=== PATIENT | female | born 1985 | race Hispanic/Latino ===

== ENCOUNTER 2022-07-03 01:59 | Emergency (ER) | payer BC ==
[2022-07-03] MEDS ORDERED: Morphine 4 MG/ML VIAL ONE (02:34)
[2022-07-03] MEDS ORDERED: Ondansetron PF 4 MG/2 ML Vial ONE (02:34)
[2022-07-03] MEDS ORDERED: Lorazepam 2 MG/ML VIAL ONE (02:35)
[2022-07-03 02:50] LABS: Bilirubin Neg (Negative); Blood, Urine 10 (Negative); Clarity Slightly Cloudy (Clear); Glucose, Urine (Dipstick) Normal (Negative); Ketone, Urine Negative (Negative); Leukocyte 25 (Negative); Nitrite Negative (Negative); Protein, Urine (Dipstick) Negative (Neg-Trace); Urobilinogen Normal mg/dL (Less than 2); pH, Urine 6.5 (5.0-9.0)
[2022-07-03 02:59] LABS: Bacteria/HPF 1+ HPF (None Seen); RBC/HPF 0-3 HPF (0-3); WBC/HPF 0-3 HPF (0-3)
[2022-07-03 03:00] LABS: Amphetamine Not Detected (NotDetected); Barbiturates Screen Not Detected (NotDetected); Benzodiazepine Screen Not Detected (NotDetected); Cocaine Metabolite Screen Not Detected (NotDetected); Methadone Not Detected (NotDetected); Methamphetamine Not Detected (NotDetected); Opiate Screen Not Detected (NotDetected); Oxycodone Screen Not Detected (NotDetected); Phencyclidine (PCP) Not Detected (NotDetected); THC/Cannabinoid Screen Not Detected (NotDetected); Tricyclic Screen Not Detected (NotDetected)
[2022-07-03 03:06] LABS: #Basophils 0.1 10x3/uL (0.0-0.2); #Eosinphils 0.1 10x3/uL (0.0-0.5); #Monocytes 0.6 10x3/uL (0.0-1.1); #Neutrophils 5.9 10x3/uL (1.5-8.4); %Basophils 0.8 % (0.0-2.0); %Eosinophils 1.5 % (0.0-6.0); %Lymphocytes 29.4 % (18.0-47.0); %Monocytes 6.7 % (0.0-10.0); %Neutrophils 61.4 % (40.0-75.0); Hemoglobin 13.5 g/dL (12.0-15.5); Mean Corpuscular HGB CONC 34.4 g/dL (32.0-36.0); Mean Corpuscular Hemoglobin 30.5 pg (27.0-33.0); Mean Corpuscular Volume 88.5 fl (81.6-98.3); Mean Platelet Volume 10.3 fl (7.4-10.4); Platelet Count 284 10x3/uL (150-450); RBC Distribution Width 12.7 % (11.5-14.5); Red Blood Cell (RBC) Count 4.43 10x6/uL (3.90-5.03); White Blood Cell (WBC) Count 9.6 10x3/uL (3.5-10.5)
[2022-07-03 03:09] LABS: BHCG - Serum Negative (NEGATIVE); Pregs Control Background? CLEAR/WHITE (CLR/WHITE); Pregs Control Bar Appear? YES (CONTROL BAR)
[2022-07-03 03:19] LABS: ALT (SGPT) 13 U/L (8-55); AST (SGOT) 11 U/L (5-34); Albumin 4.2 g/dL (3.5-5.0); Alkaline Phosphatase 100 U/L (40-110); Anion Gap 14 mmol/L (10-20); BUN (Urea Nitrogen) 8 mg/dL (7.0-18.7); Bilirubin, Total 0.4 mg/dL (0.2-1.2); Calc. Creatinine Clearance 0 mL/min (70-130); Carbon Dioxide 23 mmol/L (22-29); Chloride 108 mmol/L (98-107); Estimated GFR 105; Globulin 2.5 g/dL (2.4-3.5); Glucose 69 mg/dL (70-105); Potassium 3.7 mmol/L (3.5-5.1); Protein, Total 6.7 g/dL (6.0-8.3); Sodium 141 mmol/L (136-145)
[2022-07-03 03:22] LABS: Acetaminophen Less than 10.0 mcg/mL (10.0-30.0); Alcohol Less than 10 mg/dL (Less than 10); CK (CPK) 38 U/L (29-168); Lipase 73 U/L (8-78); Salicylate Less than 8.0 mg/dL (15.0-30.0)
== END 2022-07-03 05:26 | disposition home or self-care (01) ==
LOC: CSHERS 01:59
DX: R44.3 Hallucinations, unspecified (principal); R53.1 Weakness; E03.9 Hypothyroidism, unspecified
CPT/HCPCS: 80053; 80306; 80307; 81003; 81015; 82550; 83690; 84443; 84703; 85025; 93005; 96374; 96375; J2060; J2270; J2405

== ENCOUNTER 2022-08-07 10:37 | Outpatient (CLI) | payer BC | END 2022-08-07 10:38 | disposition home or self-care (01) | LOC: CSHMAMMO 10:37 | PROVIDERS: ATTEND Physician Assistant | DX: Z13.820 Encounter for screening for osteoporosis (principal); E21.3 Hyperparathyroidism, unspecified; M84.48XA Pathological fracture, other site, initial encounter for fracture; M85.852 Other specified disorders of bone density and structure, left thigh | CPT/HCPCS: 77080 ==

== ENCOUNTER 2023-09-09 08:52 | Outpatient (CLI) | payer BC | END 2023-09-09 08:53 | disposition home or self-care (01) | LOC: CSHMRI 08:52 | PROVIDERS: ATTEND Internal Medicine Gastroenterology | DX: R10.13 Epigastric pain (principal); Z90.49 Acquired absence of other specified parts of digestive tract; K76.9 Liver disease, unspecified; N28.1 Cyst of kidney, acquired | CPT/HCPCS: 74183 ==

== ENCOUNTER 2025-04-10 12:48 | Emergency (ER) | payer BC, OTHER ==
[2025-04-10 13:13] LABS: #Basophils Less than 0.03 10x3/uL (0.0-0.2); #Eosinophils Less than 0.03 10x3/uL (0.0-0.5); #Monocytes 0.08 10x3/uL (0.0-1.1); #Neutrophils 5.88 10x3/uL (1.5-8.4); %Basophils 0.2 % (0.0-2.0); %Eosinophils 0.0 % (0.0-6.0); %Lymphocytes 4.3 % (18.0-47.0); %Monocytes 1.3 % (0.0-10.0); %Neutrophils 93.9 % (40.0-75.0); Hematocrit 34.2 % (34.9-44.5); Hemoglobin 11.8 g/dL (12.0-15.5); Mean Corpuscular Hemoglobin 32.6 pg (27.0-33.0); Mean Corpuscular Volume 94.5 fL (81.6-98.3); Platelet Count 166 10x3/uL (150-450); Red Blood Cell (RBC) Count 3.62 10x6/uL (3.90-5.03); White Blood Cell (WBC) Count 6.26 10x3/uL (3.5-10.5)
[2025-04-10 13:34] LABS: ALT (SGPT) 25 U/L (Less than 34); AST (SGOT) 29 U/L (11-34); Albumin 3.7 g/dL (3.1-4.5); Alkaline Phosphatase 74 U/L (40-110); Anion Gap 11 mmol/L (10-20); BUN (Urea Nitrogen) 10 mg/dL (7.0-18.7); Bilirubin, Total 0.3 mg/dL (0.3-1.2); Calc. Creatinine Clearance 0 mL/min (70-130); Calcium 9.1 mg/dL (7.8-10.44); Carbon Dioxide 22 mmol/L (22-29); Chloride 110 mmol/L (98-107); Globulin 3.5 g/dL (2.4-3.5); Glucose 129 mg/dL (70-105); Potassium 5.1 mmol/L (3.5-5.1); Sodium 138 mmol/L (136-145)
[2025-04-10 14:12] LABS: Glucose, Urine (Dipstick) Normal (Negative); Leukocyte Negative (Negative); Protein, Urine (Dipstick) Negative (Neg-Trace); Specific Gravity, Urine 1.010 (1.005-1.030)
[2025-04-10 14:22] LABS: Troponin I Less than 0.010 ng/mL (< 0.028)
[2025-04-10 14:47] LABS: Bacteria/HPF Rare-Few HPF (None Seen); CAUTI Indications for Culture Alt mental st,lethar; Mucous/LPF 1+ LPF (<2+); RBC/HPF 0-3 HPF (0-3); WBC/HPF 0-3 HPF (0-3)
[2025-04-10 14:48] LABS: Urine Culture Reflex No No
[2025-04-10] MEDS ORDERED: Ketorolac Tromethamine 30 MG (1 mL) VIAL ONE (15:03)
[2025-04-10 16:04] LABS: Free T4 (Free Thyroxine) 1.01 ng/dL (0.70-1.48); Thyroid Stimulating Hormone 0.8915 uIU/mL (0.35-4.94)
== END 2025-04-10 16:58 | disposition home or self-care (01) ==
LOC: CSHERS 12:48
DX: R00.1 Bradycardia, unspecified (principal); M79.10 Myalgia, unspecified site; T50.Z15A Adverse effect of immunoglobulin, initial encounter
CPT/HCPCS: 36415; 71045; 80053; 81001; 84439; 84443; 84484; 85025; 86140; 87428; 93005; 96372; J1885

== ENCOUNTER 2025-04-12 16:33 | Emergency (ER) | payer BC ==
[~2025-04-12 16:33] MED LIST: Iopamidol 370 76% 100 ML VIAL ONE
[2025-04-12] MEDS ORDERED: diphenhydrAMINE 50 MG/ML VIAL ONE (17:16)
[2025-04-12] MEDS ORDERED: Metoclopramide HCl 10 MG (2 mL) VIAL ONE (17:16)
[2025-04-12] MEDS ORDERED: Acetaminophen 500 MG TAB ONE (17:17)
[2025-04-12 17:27] LABS: #Basophils 0.03 10x3/uL (0.0-0.2); #Eosinophils 0.05 10x3/uL (0.0-0.5); #Monocytes 0.58 10x3/uL (0.0-1.1); #Neutrophils 3.67 10x3/uL (1.5-8.4); %Basophils 0.5 % (0.0-2.0); %Eosinophils 0.8 % (0.0-6.0); %Lymphocytes 33.2 % (18.0-47.0); %Monocytes 8.9 % (0.0-10.0); %Neutrophils 56.4 % (40.0-75.0); Hematocrit 30.6 % (34.9-44.5); Hemoglobin 10.8 g/dL (12.0-15.5); Mean Corpuscular Hemoglobin 32.3 pg (27.0-33.0); Mean Corpuscular Volume 91.6 fL (81.6-98.3); Platelet Count 164 10x3/uL (150-450); Red Blood Cell (RBC) Count 3.34 10x6/uL (3.90-5.03); White Blood Cell (WBC) Count 6.50 10x3/uL (3.5-10.5)
[2025-04-12 17:37] LABS: BHCG - Serum Negative (NEGATIVE); Pregs Control Background? CLEAR/WHITE (CLR/WHITE); Pregs Control Bar Appear? YES (CONTROL BAR)
[2025-04-12 17:46] LABS: ALT (SGPT) 20 U/L (Less than 34); AST (SGOT) 11 U/L (11-34); Albumin 3.3 g/dL (3.1-4.5); Alkaline Phosphatase 80 U/L (40-110); Anion Gap 13 mmol/L (10-20); BUN (Urea Nitrogen) 12 mg/dL (7.0-18.7); Bilirubin, Total 0.3 mg/dL (0.3-1.2); Calc. Creatinine Clearance 0 mL/min (70-130); Calcium 8.4 mg/dL (7.8-10.44); Carbon Dioxide 22 mmol/L (22-29); Chloride 108 mmol/L (98-107); Globulin 2.7 g/dL (2.4-3.5); Glucose 84 mg/dL (70-105); Lipase 31 U/L (8-78); Potassium 4.1 mmol/L (3.5-5.1); Sodium 139 mmol/L (136-145); Troponin I Less than 0.010 ng/mL (< 0.028)
== END 2025-04-12 20:40 | disposition home or self-care (01) ==
LOC: CSHERS 16:33
DX: R11.2 Nausea with vomiting, unspecified (principal); R10.84 Generalized abdominal pain; M79.10 Myalgia, unspecified site
CPT/HCPCS: 70450; 71045; 71275; 74177; 80053; 83690; 84484; 84703; 85025; 93005; 94760; 96374; 96375; J1200; J2270; J2550; J2765; Q9967